=== PATIENT | male | born 1965 | race Caucasian/White ===

== ENCOUNTER 2018-05-18 21:26 | Emergency (ER) | payer SELFPAY ==
[2018-05-18 21:57] VITALS: BMI 41.1
[2018-05-18] MEDS ORDERED: ACYCLOVIR 400 MG TABLET PO ONE (23:19)
--- NOTE | 2018-05-18 23:24 | PDOC ---
Attending Attestation - HPI HPI: 05/18/18 23:38 The patient is a 52 year old male, with a significant past medical history of shingles, who presents to the emergency department with, a rash. As per patient , he was diagnosed with shingles 3 days ago. Today he presents to the ED with a rash on abdomen and right flank. - Physicial Exam PE: 05/18/18 23:38 GENERAL: Well-appearing, well-nourished. No apparent distress. HEENT: Normocephalic, atraumatic. PERRL, EOM intact. CARDIOVASCULAR: Normal S1, S2. Regular rate and rhythm. PULMONARY: Clear to auscultation bilaterally. ABDOMEN: Soft, non-distended, non-tender. EXTREMITIES: Normal ROM in all four extremities. No gross deformities. +SKIN: Dermatome on the right side of the abdomen radiating to the right flank with vesicles. NEUROLOGICAL: No focal neurological deficits. 05/18/18 23:39 <Bobbi Kirkland - Last Filed: 05/18/18 23:38> - Resident Resident Name: Deng Vasquez - ED Attending Attestation I have performed the following: I have examined & evaluated the patient, The case was reviewed & discussed with the resident, I agree w/resident's findings & plan, Exceptions are as noted - HPI HPI: 05/18/18 23:24 52 yo male dev shingles 2 days ago.He states he is visiting from [place] had shingles once before - Physicial Exam PE: 05/18/18 23:25 52-year-old male presents with shingles (recurrent) head ncat ears no lesions eyes braeden eomi lungs cta b/l cvr [id number] abd protuberant torso there are patches of vesicles following dermatome from mid abd to rt flank area ext no tenderness,mild edema neuro axox3,ambulatory skin no evicence of cellulitis on arms or legs psych anxious - Medical Decision Making 05/18/18 23:59 imp shingles RX valtrex,pain meds,lidoderm patch for AFTER the vesicles have healed <Rebecca Covarrubias - Last Filed: 05/19/18 00:00> Attestations - Attestations 05/18/18 23:39 Documentation prepared by Bobbi Kirkland, acting as medical assistant prn for Rebecca Covarrubias MD. <Bobbi Kirkland - Last Filed: 05/18/18 23:38>
--- NOTE | 2018-05-18 23:33 | PDOC ---
History of Present Illness - General Chief Complaint: Wound Stated Complaint: CELLULITIS/RASH Time Seen by Provider: 05/18/18 22:41 History Source: Patient Exam Limitations: No Limitations - History of Present Illness Initial Comments: 05/18/18 23:27 52 yo male pmh of shingles, raynauds, hypertension, recently treated lower ext cellulites and multiple orthopedic surgeries presents to the ED for T 5-T6 dermatome nerve pain and rash. Sharp pain that wraps around chest started 4 days ago and the rash with drainage started 2 days ago. Denies eye involvement or pain, fevers, chills, N/V, CP on exertion, SOB or abdominal pain. Past History - Past Medical History Home Medications: Ambulatory Orders Acyclovir [Zovirax -] 400 mg PO TID #60 capsule 05/18/18 Lidocaine 5% Patch [Lidoderm -] 1 patch TP DAILY #7 patch 05/18/18 Oxycodone HCl/Acetaminophen [Percocet 5-325 mg Tablet] 1 tab PO Q6H PRN #8 tablet MDD 4 05/18/18 Valacyclovir HCl [Valtrex] 1,000 mg PO TID 7 Days #20 tablet 05/18/18 COPD: No HTN: Yes Other medical history: GOUT, raynoids - Suicide/Smoking/Psychosocial Hx Smoking History: Never smoked Have you smoked in the past 12 months: No Information on smoking cessation initiated: No Hx Alcohol Use: No Drug/Substance Use Hx: No Substance Use Type: None Review of Systems - Review of Systems Constitutional: No: Chills, Fever HEENTM: No: Blurred Vision Respiratory: No: Shortness of Breath Cardiac (ROS): No: Chest Pain ABD/GI: No: Constipated, Diarrhea, Nausea, Vomiting : No: Burning, Dysuria Integumentary: Yes: Other (burning chest pain with rash around right T 6 dermatome) *Physical Exam - Vital Signs Last Vital Signs Temp Pulse Resp BP Pulse Ox 98.8 F 95 H 18 176/11 95 05/18/18 21:42 05/18/18 21:42 05/18/18 21:42 05/18/18 21:42 05/18/18 21:42 - Physical Exam General Appearance: Yes: Nourished, Appropriately Dressed. No: Apparent Distress Respiratory/Chest: positive: Lungs Clear, Normal Breath Sounds. negative: Crackles, Wheezing Cardiovascular: positive: Regular Rhythm, Regular Rate, S1, S2. negative: Edema , JVD, Murmur Gastrointestinal/Abdominal: positive: Normal Bowel Sounds. negative: Pulsatile Mass, Distended, Guarding, Rebound, Tenderness Musculoskeletal: positive: Normal Inspection Integumentary: positive: Other (rash with erupted vesicles on T 6 dermatome ) Neurologic: positive: Fully Oriented, Alert, Normal Mood/Affect Medical Decision Making - Medical Decision Making 05/18/18 23:49 52 yo male with pmh of zoster presents with rash and burning pain around T 6 dermatome on the right. 1st dose acyclovir given now along with one 5/325 perc Sent out valcyc, perc and lidocaine patch to pharmacy and giving follow up with [facility] Patient getting ride home with sister filemon. Told not to have close interactions with at risk individuals and not touch the skin and eyes. DC home *DC/Admit/Observation/Transfer Diagnosis at time of Disposition: Shingles Qualifiers: Herpes zoster complications: without complications Qualified Code(s): B02.9 - Zoster without complications - Discharge Dispostion Disposition: HOME Condition at time of disposition: Stable Decision to Admit order: No - Prescriptions Prescriptions: Acyclovir [Zovirax -] 400 mg PO TID #60 capsule Lidocaine 5% Patch [Lidoderm -] 1 patch TP DAILY #7 patch Oxycodone HCl/Acetaminophen [Percocet 5-325 mg Tablet] 1 tab PO Q6H PRN #8 tablet MDD 4 PRN Reason: Pain Level 7 - 10 Valacyclovir HCl [Valtrex] 1,000 mg PO TID 7 Days #20 tablet - Referrals Referrals: Micheal Levin MD [Staff Physician] - - Patient Instructions Printed Discharge Instructions: DI for Shingles Additional Instructions: Please take medications as directed on the label. Valacyclovir 3 times a day for 7 days and 1 lidocaine patch a day for 7 days. Please follow up with the clinic referred to within the next 2 days. Please come back to the Emergency Room for pain that is out of control and not relieved by medications, high fevers or pustular drainage from wound site Please keep your distance from any potentially females, the elderly or infants. Please do not touch vesicles/open wounds and wash hands before touching face and eyes Thank you - Post Discharge Activity
[2018-05-19] MEDS ORDERED: ACYCLOVIR 200 MG CAPSULE ONE (00:06)
[2018-05-19 00:14] VITALS: BP 139/77; PULSE 88; TEMP 98.2
== END 2018-05-19 00:14 | disposition home or self-care (01) ==
LOC: JER 21:26
DX: B02.9 Zoster without complications (principal); I10 Essential (primary) hypertension; M10.9 Gout, unspecified; I73.00 Raynaud's syndrome without gangrene
CPT/HCPCS: 99282-25